=== PATIENT | female | born 1995 | race African-American/Black ===

== ENCOUNTER 2018-06-21 00:12 | Emergency (ER) | payer SELFPAY ==
[~2018-06-21] VITALS: Ht 157.5 cm; Wt 62.1 kg
[2018-06-21] MEDS ORDERED: Ketorolac 30mg Inj IV ONE (00:30)
[2018-06-21] MEDS ORDERED: PROCHLORPERAZIN10 MG PO (00:34)
[2018-06-21] MEDS ORDERED: HYDROXYZINE PAM50 MG PO (00:34)
[2018-06-21] MEDS ORDERED: NAPROXEN250 M1 PO (00:34)
--- NOTE | 2018-06-21 00:34 | NUR ---
ED Nurse Note: pt walked in c/o chest pain, headache started about two days ago with nausea but no vomiting, pt states she has been under a lot of stress and has recently dx anxiety and gets panic attack. pt AA&ox4, gcs=15, skin warm and dry, resp even and unlabored on RA, -n/v/d, ambulates w/ steady gait, NSR on repairer auto clocks, will cont monitor. bed lowest position w/ siderail x2. pt advised to notify staff if needed assist.
[2018-06-21 00:37] VITALS: BP 144/70
[2018-06-21 00:59] LABS: HEMATOCRIT 39.9 % (37.0-47.0); HEMOGLOBIN 12.9 G/DL (12.0-16.0); MEAN CORPUSCULAR VOLUME 84 FL (80-99); PLATELET COUNT 233 K/UL (150-450); RED BLOOD COUNT 4.75 M/UL (4.20-5.40); RED CELL DISTRIBUTION WIDTH 11.5 % (11.6-14.8); WHITE BLOOD COUNT 9.7 K/UL (4.8-10.8)
[2018-06-21 01:06] LABS: ANION GAP 8 mmol/L (5-15); APPEARANCE,URINE CLEAR; BILIRUBIN, URINE NEGATIVE (NEGATIVE); BLOOD UREA NITROGEN 16 mg/dL (7-18); CALCIUM 8.9 MG/DL (8.5-10.1); CARBON DIOXIDE 27 MMOL/L (21-32); CHLORIDE 104 MMOL/L (98-107); COLOR,URINE PALE YELLOW; GLUCOSE, URINE (UA) NEGATIVE (NEGATIVE); KETONES,URINE NEGATIVE (NEGATIVE); NITRITE,URINE NEGATIVE (NEGATIVE); PH,URINE 8 (4.5-8.0); POTASSIUM 3.9 MMOL/L (3.5-5.1); PROTEIN,URINE NEGATIVE (NEGATIVE); SODIUM 139 MMOL/L (136-145); UROBILINOGEN,URINE NORMAL MG/DL (0.0-1.0)
[2018-06-21 01:14] LABS: LEUKOCYTE ESTERASE ,URINE 2+ (NEGATIVE)
[2018-06-21] MEDS ORDERED: IBUPROFEN600 MG ORAL (01:55)
[2018-06-21] MEDS ORDERED: MACROBID100 MG ORAL (01:55)
--- NOTE | 2018-06-21 01:56 | Emergency Room Report ---
History of Present Illness General Chief Complaint: Chest Pain Source: Patient Present Illness HPI Is a 23-year-old female with no past mental history. She presents with chief complaint of headache. Describes a throbbing in nature. Also with chest pain. Pain is intermittent. Comes and go. In multiple different areas on her chest. No nausea no vomiting. No dysuria frequency. No cough or congestion. Has not taken anything for this. Allergies: Coded Allergies: No Known Allergies (Unverified , 06/21/18) Patient History Past Medical History: see triage record, old chart reviewed Past Surgical History: none Pertinent Family History: none Social History: Denies: smoking Last Menstrual Period: 06/11/18 Now: No : 1 Para: 0 Immunizations: other Reviewed Nursing Documentation: PMH: Agreed; PSxH: Agreed Nursing Documentation-PM Past Medical History: No History, Except For Review of Systems Eye: Denies: eye pain, blurred vision ENT: Denies: ear pain, nose congestion, throat swelling Respiratory: Denies: cough, shortness of breath Cardiovascular: Reports: chest pain; Denies: palpitations Gastrointestinal: Denies: abdominal pain, diarrhea, nausea, vomiting Musculoskeletal: Denies: back pain, joint pain Skin: Denies: rash Neurological: Reports: headache; Denies: numbness Endocrine: Denies: increased thirst, increased urine Hematologic/Lymphatic: Denies: easy bruising All Other Systems: negative except mentioned in HPI Physical Exam Vital Signs Date Time Temp Pulse Resp B/P (MAP) Pulse Ox O2 Delivery O2 Flow Rate FiO2 06/21/18 00:29 98.2 72 16 141/77 100 06/21/18 00:37 Room Air vitals normal Sp02 EP Interpretation: reviewed, normal General Appearance: well appearing, no apparent distress, alert Head: normocephalic, atraumatic Eyes: bilateral eye PERRL, bilateral eye EOMI ENT: hearing grossly normal, normal pharynx Neck: full range of motion, supple, no meningismus Respiratory: chest non-tender, lungs clear, normal breath sounds Cardiovascular #1: regular rate, rhythm, no murmur Gastrointestinal: normal bowel sounds, non tender, no mass, no organomegaly, no bruit, non-distended Musculoskeletal: back normal, gait/station normal, normal range of motion Psychiatric: mood/affect normal Skin: warm/dry Medical Decision Making Diagnostic Impression: Primary Impression: Nonspecific chest pain Additional Impressions: Headache Qualified Codes: G44.209 - Tension-type headache, unspecified, not intractable UTI (urinary tract infection) Qualified Codes: N30.00 - Acute cystitis without hematuria ER Course Patient with headache and chest pain. No evidence of ACS, PE, dissection to name a few. No evidence of TIA, CVA, bleed, meningitis. She looks well otherwise. We'll discharge home. Lab Results Impression labs normal EKG Diagnostic Results Rate: normal Rhythm: NSR ST Segments: no acute changes Rhythm Strip Diag. Results Rhythm Strip Time: 01:54 EP Interpretation: yes Rate: 70 Rhythm: NSR, no PVC's, no ectopy Chest X-Ray Diagnostic Results Chest X-Ray Diagnostic Results : Chest X-Ray Ordered: Yes # of Views/Limited/Complete: 1 View Indication: Chest Pain EP Interpretation: Yes Interpretation: no consolidation, no effusion, no pneumothorax, no acute cardiopulmonary disease Impression: No acute disease Electronically Signed by: Gomez Joyner MD Last Vital Signs Date Time Temp Pulse Resp B/P (MAP) Pulse Ox O2 Delivery O2 Flow Rate FiO2 06/21/18 00:37 98.3 78 16 144/70 100 Room Air Status: improved Disposition: HOME, SELF-CARE Condition: Stable Scripts Nitrofurantoin Monohyd/M-Cryst (Nitrofurantoin [place]-Mcr 100 mg) 100 Mg Capsule 100 MG ORAL Q12H, #14 CAP Prov: Gomez Joyner MD 06/21/18 Ibuprofen* (MOTRIN*) 600 Mg Tablet 600 MG ORAL THREE TIMES A DAY, #30 TAB 0 Refills Prov: Gomez Joyner MD 06/21/18 Referrals: NOT CHOSEN [facility]/,REFERRING (PCP) Patient Instructions: Nonspecific Chest Pain Additional Instructions: Follow-up with your doctor in 7 days. Return if symptom worsen. Gomez Joyner MD Jun 21, 2018 01:56
--- NOTE | 2018-06-21 02:15 | NUR ---
ED Nurse Note: ERMD at bedside.
--- NOTE | 2018-06-21 02:17 | NUR ---
ED Nurse Note: Pt down to imaging.
--- NOTE | 2018-06-21 02:30 | NUR ---
ED Nurse Note: Patient back from imaging.
[2018-06-21 02:35] VITALS: BP 144/70
--- NOTE | 2018-06-21 02:36 | NUR ---
ED Nurse Note: Patient cleared for discharge per ERMD. AO4 NAD. VSS. Accompanied by family member. Patient given prescriptions and discharge instructions; verbalized understanding. IV and ID band removed. Patient ambulated steady with all personal belongings.
--- NOTE | 2018-06-21 09:25 | Diagnostic Imaging Report ---
Indication: Chest pain Technique: One view of the chest Comparison: Findings: Lungs and pleural spaces are clear. Heart size is normal Impression: No acute process
--- NOTE | 2018-06-21 09:36 | Diagnostic Imaging Report ---
Indications: Headache and vertigo Technique: Spiral acquisitions obtained through the brain. Angled axial and coronal 5 x 5 mm slices were reconstructed. Total dose length product 1252 mGycm. CTDI vol(s) 70 mGy. Dose reduction achieved using automated exposure control Comparison: None. Findings: 6 no acute intrarenal hemorrhage or edema, mass effect, nor midline shift. Normal lucas-white differentiation. Intact calvarium. Visualized orbits unremarkable. There is bilateral ethmoid sinus mucosal disease. The mastoids are clear. Impression: Negative for acute intracranial bleed or mass effect Minimal ethmoid sinus disease This agrees with the preliminary interpretation provided overnight by [facility] service. The CT scanner at [facility] is accredited by the [employer] and the scans are performed using protocols designed to limit radiation exposure to as low as reasonably achievable to attain images of sufficient resolution adequate for diagnostic evaluation.
--- NOTE | 2018-06-21 15:28 | Cardiology Report ---
APPROVED REPORT EKG Measurement Heart [id number] ID [id number] Normal sinus rhythm with sinus arrhythmia Nonspecific T wave abnormality Abnormal ECG
== END 2018-06-21 03:26 | disposition home or self-care (01) ==
LOC: EMR 00:30
DX: R07.89 Other chest pain (principal); R51 Headache; N39.0 Urinary tract infection, site not specified
CPT/HCPCS: 36415; 70450; 71045; 80048; 81001; 81025; 85025; 87086; 93005; 96374; 99284; J1885

== ENCOUNTER 2019-07-01 10:41 | Emergency (ER) | payer OTHER ==
[~2019-07-01] VITALS: Ht 157.5 cm; Wt 63.5 kg
[~2019-07-01 10:41] MED LIST: HYDROXYZINE PAM50 MG PO; IBUPROFEN600 MG ORAL; MACROBID100 MG ORAL; NAPROXEN250 M1 PO; PROCHLORPERAZIN10 MG PO
--- NOTE | 2019-07-01 11:00 | NUR ---
ED Nurse Note: Patient walked into ED from home c/o abd pain x 7 days. Patient reports feeling dizzy or lightheaded intermittently over the last week as well. Patient AxO x 4, no s/s of acute distress.
--- NOTE | 2019-07-01 11:16 | Emergency Room Report ---
History of Present Illness General Chief Complaint: Abdominal Pain Source: Patient Present Illness HPI Patient presents with that dysuria, left lower quadrant tenderness and fatigue. She believes she might have a urinary tract infection. The pain does not radiate to her back and she has no vaginal discharge. She denies fevers or chills. She has had urinary tract infections in the past and this feels similar. There is no nausea, vomiting or diarrhea. She has been feeling general malaise and some weakness. This is worsened when she stands up. She has been increasing her oral fluids. The pain is rated 4/10 and poorly described. The left lower abdomen. In addition to that she has been having episodes of chest pain and shortness of breath associated with feelings of anxiety before going to sleep. Patient is taking Lexapro. She had a reaction of low blood pressure due to this however the dose is been kept the same. She has been on out of it over a year. She has increased stress at this time. She is for her who lives in [place]. She is living with her aunt. She denies suicidal or homicidal ideation. She feels safe where she is living. 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 No sore throat, joint pain, rashes, visual changes, headache. Allergies: Coded Allergies: No Known Allergies (Unverified , 06/21/18) Patient History Past Medical History: see triage record Social History: Denies: smoking, alcohol use, drug use Social History Narrative from her and living with her aunt Last Menstrual Period: 06/11/2019 Now: No : 1 Para: 0 Nursing Documentation-[facility] History Of Psychiatric Problem: Yes - Depression Review of Systems All Other Systems: negative except mentioned in HPI Physical Exam Vital Signs Date Time Temp Pulse Resp B/P (MAP) Pulse Ox O2 Delivery O2 Flow Rate FiO2 07/01/19 10:49 98.2 72 18 110/60 (77) 98 Room Air Sp02 EP Interpretation: reviewed, normal General Appearance: well appearing, no apparent distress, GCS 15, non-toxic Head: normocephalic Eyes: bilateral eye normal inspection, bilateral eye PERRL, bilateral eye EOMI ENT: moist mucus membranes Neck: supple Respiratory: chest non-tender, lungs clear, normal breath sounds Cardiovascular #1: regular rate, rhythm Cardiovascular #2: 2+ radial (R) Gastrointestinal: normal inspection, normal bowel sounds, no mass, non- distended, no guarding, no rebound, tenderness - Reported tenderness left lower quadrant Genitourinary: no CVA tenderness Musculoskeletal: back normal, normal range of motion, gait/station normal Neurologic: alert, oriented x3, grossly normal Psychiatric: no suicidal/homicidal ideation, anxious Skin: warm/dry, other - Old intention vizcaino left forearm Medical Decision Making Diagnostic Impression: Primary Impression: UTI (urinary tract infection) Qualified Codes: N30.00 - Acute cystitis without hematuria Additional Impressions: Hypomagnesemia Situational stress ER Course Patient presents with fatigue and left lower quadrant pain. Differential includes UTI, ovarian cyst, pyelonephritis, electrolyte imbalance anxiety amongst others. Orthostatics will be performed. She has also been having chest pain and EKG will be obtained. Labs and urine ordered. Normal saline 1 L will be given. EKG unremarkable. Labs significant for low magnesium. Urinalysis with pyuria. Improved with normal saline. Magnesium ordered IV. Tolerated well. Patient improved with treatment. Discussed findings and need for follow-up. Patient stable for outpatient observation and treatment. Laboratory Tests Test 07/01/19 11:00 07/01/19 11:30 Urine Color Pale yellow Urine Appearance Slightly cloudy Urine pH 8 (4.5-8.0) Urine Specific [place] 1.010 (1.005-1.035) Urine Protein Negative (NEGATIVE) Urine Glucose (UA) Negative (NEGATIVE) Urine Ketones Negative (NEGATIVE) Urine Blood Negative (NEGATIVE) Urine Nitrite Negative (NEGATIVE) Urine Bilirubin Negative (NEGATIVE) Urine Urobilinogen Normal MG/DL (0.0-1.0) Urine Leukocyte Esterase 3+ (NEGATIVE) H Urine RBC 2-4 /HPF (0 - 2) H Urine WBC 10-15 /HPF (0 - 2) H Urine Squamous Epithelial Cells Many /LPF (NONE/OCC) H Urine Bacteria Moderate /HPF (NONE) H Urine HCG, Qualitative Negative (NEGATIVE) White Blood Count 7.4 K/UL (4.8-10.8) Red Blood Count 4.55 M/UL (4.20-5.40) Hemoglobin 12.6 G/DL (12.0-16.0) Hematocrit 37.7 % (37.0-47.0) Mean Corpuscular Volume 83 FL (80-99) Mean Corpuscular Hemoglobin 27.7 PG (27.0-31.0) Mean Corpuscular Hemoglobin Concent 33.4 G/DL (32.0-36.0) Red Cell Distribution Width 12.0 % (11.6-14.8) Platelet Count 213 K/UL (150-450) Mean Platelet Volume 7.4 FL (6.5-10.1) Neutrophils (%) (Auto) 37.2 % (45.0-75.0) L Lymphocytes (%) (Auto) 44.1 % (20.0-45.0) Monocytes (%) (Auto) 13.6 % (1.0-10.0) H Eosinophils (%) (Auto) 3.9 % (0.0-3.0) H Basophils (%) (Auto) 1.2 % (0.0-2.0) Sodium Level 143 MMOL/L (136-145) Potassium Level 4.1 MMOL/L (3.5-5.1) Chloride Level 106 MMOL/L (98-107) Carbon Dioxide Level 23 MMOL/L (21-32) Anion Gap 14 mmol/L (5-15) Blood Urea Nitrogen 9 mg/dL (7-18) Creatinine 0.7 MG/DL (0.55-1.30) Estimate Glomerular Filtration Rate > 60 mL/min (>60) Glucose Level 95 MG/DL (74-106) Calcium Level 9.4 MG/DL (8.5-10.1) Magnesium Level 1.7 MG/DL (1.8-2.4) L Total Bilirubin 0.1 MG/DL (0.2-1.0) L Aspartate Amino Transferase (AST) 13 U/L (15-37) L Alanine Aminotransferase (ALT) 22 U/L (12-78) Alkaline Phosphatase 68 U/L (46-116) Total Protein 7.6 G/DL (6.4-8.2) Albumin 3.7 G/DL (3.4-5.0) Globulin 3.9 g/dL Albumin/Globulin Ratio 0.9 (1.0-2.7) L Lipase 157 U/L (73-393) EKG Diagnostic Results Rate: bradycardiac Rhythm: NSR ST Segments: no acute changes Rhythm Strip Diag. Results EP Interpretation: yes Rhythm: no PVC's, no ectopy, other - timo 52 Last Vital Signs Date Time Temp Pulse Resp B/P (MAP) Pulse Ox O2 Delivery O2 Flow Rate FiO2 07/01/19 14:40 72 18 Room Air 07/01/19 14:40 98.2 110/60 98 Status: improved Disposition: HOME, SELF-CARE Condition: Improved Scripts Multivitamin With Minerals (MULTIVITAMINS WITH MINERALS*) 1 Each Tablet 1 TAB ORAL DAILY, #30 TAB 1 Refill Prov: Luigi Kim MD 07/01/19 Nitrofurantoin Monohyd/M-Cryst* (MACROBID 100 MG*) 100 Mg Capsule 100 MG ORAL EVERY 12 HOURS, #14 CAP Prov: Luigi Kim MD 07/01/19 Referrals: ROSALINDA ROQUE PL[facility],REFERRI (PCP) Luigi Kim MD Jul 01, 2019 11:16
[2019-07-01 11:20] VITALS: BP_SYST 104; BP_SYST 108; BP_SYST 98; BP_DIAS 66; BP_DIAS 69; BP_DIAS 74
[2019-07-01 11:42] LABS: BASOPHILS % (AUTO) 1.2 % (0.0-2.0); EOSINOPHILS % (AUTO) 3.9 % (0.0-3.0); HEMATOCRIT 37.7 % (37.0-47.0); HEMOGLOBIN 12.6 G/DL (12.0-16.0); LYMPHOCYTES % (AUTO) 44.1 % (20.0-45.0); MEAN CORPUSCULAR VOLUME 83 FL (80-99); MONOCYTES % (AUTO) 13.6 % (1.0-10.0); NEUTROPHILS % (AUTO) 37.2 % (45.0-75.0); PLATELET COUNT 213 K/UL (150-450); RED BLOOD COUNT 4.55 M/UL (4.20-5.40); WHITE BLOOD COUNT 7.4 K/UL (4.8-10.8)
[2019-07-01 11:58] LABS: ANION GAP 14 mmol/L (5-15); BLOOD UREA NITROGEN 9 mg/dL (7-18); CALCIUM 9.4 MG/DL (8.5-10.1); CARBON DIOXIDE 23 MMOL/L (21-32); CHLORIDE 106 MMOL/L (98-107); CREATININE 0.7 MG/DL (0.55-1.30); POTASSIUM 4.1 MMOL/L (3.5-5.1); SODIUM 143 MMOL/L (136-145)
[2019-07-01 12:02] LABS: ALANINE AMINOTRANSFERASE 22 U/L (12-78); ALBUMIN 3.7 G/DL (3.4-5.0); ALBUMIN/GLOBULIN RATIO 0.9 (1.0-2.7); ALKALINE PHOSPHATASE 68 U/L (46-116); ASPARTATE AMINO TRANSFERASE 13 U/L (15-37); BILIRUBIN,TOTAL 0.1 MG/DL (0.2-1.0)
[2019-07-01 12:19] LABS: APPEARANCE,URINE SLIGHTLY CLOUDY; BILIRUBIN, URINE NEGATIVE (NEGATIVE); COLOR,URINE PALE YELLOW; GLUCOSE, URINE (UA) NEGATIVE (NEGATIVE); KETONES,URINE NEGATIVE (NEGATIVE); LEUKOCYTE ESTERASE ,URINE 3+ (NEGATIVE); NITRITE,URINE NEGATIVE (NEGATIVE); PH,URINE 8 (4.5-8.0); PROTEIN,URINE NEGATIVE (NEGATIVE); UROBILINOGEN,URINE NORMAL MG/DL (0.0-1.0)
[2019-07-01] MEDS ORDERED: NITROFURANTOIN100 M2 ORAL (13:11)
[2019-07-01] MEDS ORDERED: MULTIVITAMINS1 EAC8 ORAL (13:11)
--- NOTE | 2019-07-01 13:21 | NUR ---
ER DISCHARGE NOTE: Patient cleared for DC by Dr. Kim, patient AxO x 4, no s/s of acute distress. Patient verbalized understanding of DC instructions. Patient ID band removed. Able to ambulate with steady gait, took all belongings.
[2019-07-01 14:40] VITALS: BP 110/60
== END 2019-07-01 13:21 | disposition home or self-care (01) ==
LOC: EMR 11:03
DX: N30.00 Acute cystitis without hematuria (principal); E83.42 Hypomagnesemia; F43.9 Reaction to severe stress, unspecified; Z79.899 Other long term (current) drug therapy
CPT/HCPCS: 36415; 80053; 81003; 81025; 83690; 83735; 85025; 87086; 93005; 96361; 96365; J7030; Z7502; 99284